=== PATIENT | male | born 1960 | race Caucasian/White ===

== ENCOUNTER 2020-05-18 16:23 | Emergency (ER) | payer BC, MEDICARE ==
[~2020-05-18] VITALS: Ht 170.2 cm; Wt 72.7 kg
--- NOTE | 2020-05-18 18:19 | NUR ---
LEFT AXILLA WITH ERYTHEMA THAT SRPEDS TO LEFT BREAT/CHEST WALL PATIENT CLAIMS. DENIES LIMITED RANGE OF MOTION.
[2020-05-18] MEDS ORDERED: clindamycin 150mg capsule PO ONE (18:50)
[2020-05-18] MEDS ORDERED: DOXYCYCLINE 100MG CAPSULE PO STA (18:50)
[2020-05-18] MEDS ORDERED: DOXY100C77 PO (18:56)
[2020-05-18] MEDS ORDERED: CLIN-97 PO (18:56)
[2020-05-18 19:01] VITALS: BP 148/86
== END 2020-05-18 19:20 | disposition home or self-care (01) ==
LOC: ER 16:23
DX: L03.313 Cellulitis of chest wall (principal); F10.99 Alcohol use, unspecified with unspecified alcohol-induced disorder; Z79.2 Long term (current) use of antibiotics; W57.XXXA Bitten or stung by nonvenomous insect and other nonvenomous arthropods, initial encounter; Y93.89 Activity, other specified; Y92.89 Other specified places as the place of occurrence of the external cause; Y99.8 Other external cause status
CPT/HCPCS: 99283; 99284